=== PATIENT | male | born 1985 | race Caucasian/White ===

== ENCOUNTER 2017-07-08 09:00 | Outpatient (RCR) | payer MEDICAID | END 2017-07-09 | LOC: M OUTALCOH 09:00 | PROVIDERS: ATTEND Psychiatry & Neurology Psychiatry | DX: F12.20 Cannabis dependence, uncomplicated (principal); F17.200 Nicotine dependence, unspecified, uncomplicated ==

== ENCOUNTER 2017-07-14 10:00 | Outpatient (RCR) | payer MEDICAID | END 2017-08-09 | LOC: M OUTALCOH 07-28 10:00 | DX: F12.20 Cannabis dependence, uncomplicated (principal); F17.200 Nicotine dependence, unspecified, uncomplicated ==

== ENCOUNTER 2017-08-11 10:12 | Outpatient (RCR) | payer MEDICAID | END 2017-09-09 | LOC: M OUTALCOH 09-08 10:00 | DX: F12.20 Cannabis dependence, uncomplicated (principal); F17.200 Nicotine dependence, unspecified, uncomplicated ==

== ENCOUNTER 2017-09-15 10:00 | Outpatient (RCR) | payer MEDICAID | END 2017-10-07 | LOC: M OUTALCOH 09-29 10:00 | DX: F12.20 Cannabis dependence, uncomplicated (principal); F17.200 Nicotine dependence, unspecified, uncomplicated ==

== ENCOUNTER 2017-10-13 10:00 | Outpatient (RCR) | payer MEDICAID | END 2017-11-07 | LOC: M OUTALCOH 10-27 10:00 | DX: F12.20 Cannabis dependence, uncomplicated (principal); F17.200 Nicotine dependence, unspecified, uncomplicated ==

== ENCOUNTER 2018-10-02 13:10 | Emergency (ER) | payer MEDICAID, OTHER, SELFPAY ==
[~2018-10-02] VITALS: Ht 188 cm; Wt 100.0 kg
[2018-10-02] MEDS ORDERED: KETOROLAC 60 MG/2 ML VIAL (J1885) IM ONE (13:45)
--- NOTE | 2018-10-02 14:08 | REP ---
Supine abdomen single AP view: Comparison is the CT of the abdomen and pelvis dated 01/26/2008. The bowel gas pattern is normal. There are no calcifications except for phleboliths in the pelvis. The skeletal soft tissue structures otherwise are unremarkable. Impression: Normal bowel gas pattern. Electronically Signed by Jeovany Richards MD 10/02/2018 01:58 P
[2018-10-02] MEDS ORDERED: CYCL10TA PO (14:20)
[2018-10-02] MEDS ORDERED: NAPR-50 PO (14:20)
[2018-10-02] MEDS ORDERED: MAGNESIUM CITRATE 300 ML BTL PO ONE (14:30)
[2018-10-02 14:51] VITALS: BP 140/83
[2018-10-02 16:44] LABS: CHLAMYDIA DNA AMPLIFICATION NEGATIVE (NEGATIVE); GC DNA AMPLIFICATION NEGATIVE (NEGATIVE)
--- NOTE | 2018-10-03 17:42 | ECGEPIP ---
Stationary ECG Study 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
== END 2018-10-02 14:59 | disposition home or self-care (01) ==
LOC: M ED 13:10
DX: K59.00 Constipation, unspecified (principal); M54.5 Low back pain; J45.909 Unspecified asthma, uncomplicated; Z72.0 Tobacco use
CPT/HCPCS: 74018; 87491; 87591; 93005; 96372; 99284; J1885

== ENCOUNTER 2020-04-15 16:50 | Emergency (ER) | payer SELFPAY ==
[~2020-04-15] VITALS: Ht 188 cm; Wt 113.6 kg
[~2020-04-15 16:50] MED LIST: CYCL-707 PO; NAPR-837 PO
[2020-04-15] MEDS ORDERED: ERYT5OIN25 OP (17:42)
[2020-04-15] MEDS ORDERED: ERYTHROMYCIN OPHTH OINT OD ONE (17:45)
[2020-04-15] MEDS ORDERED: ACETAMINOPHEN 500 MG TAB PO ONE (18:00)
[2020-04-15] MEDS ORDERED: IBUPROFEN 800 MG TAB PO ONE (18:00)
[2020-04-15 18:16] VITALS: BP 136/85
== END 2020-04-15 18:23 | disposition home or self-care (01) ==
LOC: M ED 16:50
DX: H01.001 Unspecified blepharitis right upper eyelid (principal); J45.909 Unspecified asthma, uncomplicated

== ENCOUNTER → 2022-11-14 | Outpatient (CLI) | payer OTHER ==
[~2022-11-14] MED LIST changes: +ERYT5OIN25 OP
== END ==
LOC: M PLARAD 09:25
PROVIDERS: ATTEND Physician Assistant Medical
DX: M51.26 Other intervertebral disc displacement, lumbar region (principal); M47.816 Spondylosis without myelopathy or radiculopathy, lumbar region; M48.061 Spinal stenosis, lumbar region without neurogenic claudication